=== PATIENT | male | born 1985 | race Caucasian/White ===

== ENCOUNTER 2017-03-02 14:31 | Emergency (ER) | payer OTHER ==
[2017-03-02 14:47] VITALS: RESP 18
[2017-03-02] MEDS ORDERED: ACETAMINOPHEN TAB 500 MG TAB PO STA (16:06)
--- NOTE | 2017-03-02 16:16 | ED ---
Fever HPI - General Chief Complaint: Fever Stated Complaint: Fever/101.3/Fatigue Time Seen by Provider: 03/02/17 15:54 Source: patient, RN notes reviewed Mode of arrival: ambulatory Limitations: no limitations - History of Present Illness Initial Comments: 31 yo male presents to the ER with cc of fever. patient states she's been sick since yesterday. Patient states that he is having full body aches he is had a fever he took Tylenol Motrin earlier. Patient states he's had a mild cough. Patient states his concern is that he did find takes in his bed use the Valium he's noticed some bites and has noticed some rashes at the facility thought that he should be seen. Patient states he hasn't had her symptoms of this. Patient denies any recent fever, chills, shortness of breath, chest pain, back pain, abdominal pain, nausea vomiting, numbness or tingling, dysuria or hematuria, constipation or diarrhea, headaches or visual changes, or any other current symptoms. - Related Data Home Medications Medication Instructions Recorded Confirmed Acetaminophen [Tylenol] 2,000 mg PO HS PRN 03/02/17 03/02/17 Adynovate 22 - 48 units IM Q4D 03/02/17 03/02/17 Previous Rx's Medication Instructions Recorded EPINEPHrine (Auto Inject) [Epipen] 0.3 mg IM ONCE PRN #1 syringe 04/12/15 Doxycycline [Vibramycin] 100 mg PO Q12HR #60 capsule 03/02/17 Allergies Allergy/AdvReac Type Severity Reaction Status Date / Time bee pollen Allergy Wheezing Verified 03/02/17 16:35 aspirin AdvReac Unknown Verified 03/02/17 16:35 Review of Systems ROS Statement: Those systems with pertinent positive or pertinent negative responses have been documented in the HPI. ROS Other: All systems not noted in ROS Statement are negative. Past Medical History Additional Past Medical History / Comment(s): HEMOPHILLIA, ARTHRITIS History of Any Multi-Drug Resistant Organisms: None Reported Past Surgical History: Orthopedic Surgery Additional Past Surgical History / Comment(s): WISDOM TEETH , left elbow Past Psychological History: No Psychological Hx Reported Smoking Status: Never smoker Past Alcohol Use History: Occasional Past Drug Use History: None Reported General Exam - General Exam Comments Initial Comments: General: The patient is awake and alert, in no distress, and does not appear acutely ill. Eye: Pupils are equal, round. Ears, nose, mouth and throat: There are moist mucous membranes. Neck: The neck is supple, there is no tenderness. Cardiovascular: There is a regular rate and rhythm. No murmur, rub or gallop is appreciated. Respiratory: Lungs are clear to auscultation, respirations are non-labored, breath sounds are equal. No wheezes, stridor, rales, or rhonchi. Back: There is no tenderness to palpation in the midline. There is no obvious deformity. No rashes noted. Musculoskeletal: Normal ROM, no tenderness, There is no pedal edema. There is no calf tenderness or swelling. Sensation intact. Pulses equal bilaterally 2+. Neurological: CN II-XII intact, There are no obvious motor or sensory deficits. Coordination appears grossly intact. Speech is normal. Skin: Skin is warm and dry and patient does appear to have multiple bites on until he presented there with one area that does appear to have central clearing with some redness around the area however is normal 1.5 cm at most. Psychiatric: Cooperative, appropriate mood & affect, normal judgment. Limitations: no limitations Course Vital Signs 03/02/17 14:44 Temperature 101.5 F H Pulse Rate 113 H Respiratory 18 Rate Blood Pressure 149/89 O2 Sat by Pulse 97 Oximetry - Reevaluation(s) Reevaluation #1: 03/02/17 17:27 we did discuss the patient's symptoms and the concern that it could be Lyme's disease. Discussed. Labs for follow-up on them. Patient stated that he understood we discussed the importance of finishing the antibiotics. All her questions have been answered. At this time the patient will be discharged home. Medical Decision Making - Medical Decision Making 31-year-old male presents emergency Department chief complaint of fever.due to the patient's symptoms with the unusual rash we will treat for concern for Lyme' s disease. We did test. We did discuss follow-up with the family care doctor return parameters outpatient family's questions. He states the Mian they' re agreement with plan. This time they will be discharged home. - Lab Data Lab Results 03/02/17 Range/Units 16:26 Influenza Type A RNA Not Detected (Not Detectd) Influenza Type B (PCR) Not Detected (Not Detectd) - Radiology Data Radiology results: report reviewed, image reviewed Disposition Clinical Impression: Acute Lyme disease, Fever Disposition: HOME SELF-CARE Condition: Stable Instructions: Lyme Disease (ED), Fever in Adults (ED) Additional Instructions: Please use medication as discussed. Please follow up with family doctor if symptoms have not improved over the next two days. Please return to the emergency room if your symptoms increase or worsen or for any other concerns. Prescriptions: Doxycycline [Vibramycin] 100 mg PO Q12HR #60 capsule Referrals: Jt Brody DO [STAFF PHYSICIAN] - 1-2 days Time of Disposition: 17:26
--- NOTE | 2017-03-02 16:19 | XR ---
EXAMINATION TYPE: XR chest 2V DATE OF EXAM: 03/02/2017 COMPARISON: NONE INDICATION: Cough and weakness TECHNIQUE: Frontal and lateral views of the chest are obtained. FINDINGS: The heart size is normal. The pulmonary vasculature is normal. The lungs are clear. IMPRESSION: 1. No acute pulmonary process.
[2017-03-02 18:01] VITALS: BP 144/87; PULSE 92; TEMP 99.9
== END 2017-03-02 17:59 | disposition home or self-care (01) ==
LOC: EC 14:31
DX: A69.20 Lyme disease, unspecified (principal); D66 Hereditary factor VIII deficiency; Z79.899 Other long term (current) drug therapy; Z88.6 Allergy status to analgesic agent; Z91.030 Bee allergy status
CPT/HCPCS: 36415; 71020; 86618; 87502; 99283